=== PATIENT | male | born 1945 | race Caucasian/White ===

== ENCOUNTER 2018-02-27 22:06 | Emergency (ER) | payer OTHER, MEDICAID ==
[2018-02-27 22:15] VITALS: BP 103/71
--- NOTE | 2018-02-27 22:17 | EDPHY ---
H & P Stated Complaint: potential fasciotomy graft infection Time Seen by Provider: 02/27/18 22:17 HPI/ROS: HPI CHIEF COMPLAINT: Left leg wound, chronic. HISTORY OF PRESENT ILLNESS: 72-year-old male, homeless, polysubstance abuse including alcohol, states he has had a chronic leg wounds since October. He came in the emergency room tonight due to increasing pain. Denies fever. No significant drainage. Past Medical History: Polysubstance abuse, homelessness, alcoholism Past Surgical History: No recent surgery however chronic right lower extremity leg wound. Social History: Homeless. Family History: Noncontributory ROS REVIEW OF SYSTEMS: 10 Systems were reviewed and negative with the exception of the elements mentioned in the history of present illness. Exam Constitutional triage nursing summary reviewed, vital signs reviewed, awake/ alert. Eyes normal conjunctivae and sclera, EOMI, PERRLA. HENT normal inspection, atraumatic, moist mucus membranes, no epistaxis, neck supple/ no meningismus, no raccoon eyes. Respiratory clear to auscultation bilaterally, normal breath sounds, no respiratory distress, no wheezing. Cardiovascular rate normal, regular rhythm, no murmur, no edema, distal pulses normal. Gastrointestinal soft, non-tender, no rebound, no guarding, normal bowel sounds, no distension, no pulsatile mass. Genitourinary no CVA tenderness. Musculoskeletal no midline vertebral tenderness, full range of motion, no calf swelling, no tenderness of extremities, no meningismus, good pulses, neurovascularly intact. Skin right lateral leg 10 cm vertically oriented right lateral calf wound. By 5 cm with. No signs of infection. No pus. No drainage. No foul smell. No surrounding cellulitis. Skin appears somewhat bloody as he recently may have hit it on something. No significant tenderness on exam. Right lower extremity good distal pulse, good cap refill. Neurologic awake, alert and oriented x 3, AAOx3, moves all 4 extremities equally, motor intact, sensory intact, CN II-XII intact, normal cerebellar, normal vision, normal speech. Psychiatric normal mood/affect. Heme/Lymph/Immune no lymphadenopathy. Differential Diagnosis: Includes but is not limited to in a particular order worsening right leg wound, acute on chronic leg wound, infection, need for wound care. Medical Decision Making: Plan for this patient will copiously clean his wound. Will dress it appropriately. Obtain basic blood work. Re-evaluation: 2316: Notified by nursing staff that the patient eloped from the emergency room. The patient's right leg was appropriately dressed in clean. It is unclear why he left without notifying staff. The patient is homeless. His vital signs are stable. His blood work is unremarkable. His wound was appropriately dressed and cleaned. I was unable to discuss his medical care with him or return precautions as he eloped without notifying the ER. Will attempt to make contact with him. However he is homeless. Could be difficult. Source: Patient - Medical/Surgical History Other PMH: etoh abuse, ivda, skin popping, back surgeries - Social History Smoking Status: Current every day smoker Constitutional: Initial Vital Signs Temperature (C) 36.5 C 02/27/18 22:10 Heart Rate 90 02/27/18 22:10 Respiratory Rate 16 02/27/18 22:10 Blood Pressure 103/71 02/27/18 22:10 O2 Sat (%) 93 02/27/18 22:10 O2 Delivery Mode Room Air Allergies/Adverse Reactions: No Known Allergies Allergy (Unverified 12/22/17 17:02) Home Medications: Medication Instructions Recorded NK [No Known Home Meds] 12/22/17 Medical Decision Making - Data Points Laboratory Results: Laboratory Results 02/27/18 22:55 02/27/18 22:55 02/27/18 02/27/18 22:55 22:55 WBC 3.96 10^3/uL 10^3/uL (3.80-9.50) RBC 3.82 10^6/uL L 10^6/uL (4.40-6.38) Hgb 12.1 g/dL L g/dL (13.7-17.5) Hct 36.2 % L % (40.0-51.0) MCV 94.8 fL fL (81.5-99.8) MCH 31.7 pg pg (27.9-34.1) MCHC 33.4 g/dL g/dL (32.4-36.7) RDW 16.7 % H % (11.5-15.2) Plt Count 193 10^3/uL 10^3/uL (150-400) MPV 9.7 fL fL (8.7-11.7) Neut % (Auto) 48.2 % % (39.3-74.2) Lymph % (Auto) 34.1 % % (15.0-45.0) Harney % (Auto) 11.1 % % (4.5-13.0) Eos % (Auto) 5.6 % % (0.6-7.6) Baso % (Auto) 1.0 % % (0.3-1.7) Nucleat RBC Rel Count 0.0 % % (0.0-0.2) Absolute Neuts (auto) 1.91 10^3/uL 10^3/uL (1.70-6.50) Absolute Lymphs (auto) 1.35 10^3/uL 10^3/uL (1.00-3.00) Absolute Monos (auto) 0.44 10^3/uL 10^3/uL (0.30-0.80) Absolute Eos (auto) 0.22 10^3/uL 10^3/uL (0.03-0.40) Absolute Basos (auto) 0.04 10^3/uL 10^3/uL (0.02-0.10) Absolute Nucleated RBC 0.00 10^3/uL 10^3/uL (0-0.01) Immature Gran % 0.0 % % (0.0-1.1) Immature Gran # 0.00 10^3/uL 10^3/uL (0.00-0.10) Sodium 141 mEq/L mEq/L (135-145) Potassium 4.2 mEq/L mEq/L (3.3-5.0) Chloride 112 mEq/L H mEq/L (97-110) Carbon Dioxide 20 mEq/l L mEq/l (22-31) Anion Gap 9 mEq/L mEq/L (6-14) BUN 17 mg/dL mg/dL (7-23) Creatinine 0.7 mg/dL mg/dL (0.7-1.3) Estimated GFR > 60 Glucose 81 mg/dL mg/dL (70-100) Calcium 9.0 mg/dL mg/dL (8.5-10.4) Departure - Departure Disposition: Against Medical Advice Condition: Fair Instructions: Wound Healing and Your Diet (ED) Referrals: NONE *PRIMARY CARE P,. [Primary Care Provider] - As per Instructions
[2018-02-27 23:06] LABS: PLATELET COUNT 193 10^3/uL (150-400)
== END 2018-02-27 23:17 | disposition left against medical advice (07) ==
LOC: EDUNIT#
DX: S81.802A Unspecified open wound, left lower leg, initial encounter (principal); Z59.0 Homelessness; F10.20 Alcohol dependence, uncomplicated; F19.10 Other psychoactive substance abuse, uncomplicated

== ENCOUNTER 2018-03-25 11:41 | Emergency (ER) | payer OTHER ==
[2018-03-25] MEDS ORDERED: NS 1,800 ML IV ONE (12:11)
--- NOTE | 2018-03-25 12:14 | EDPHY ---
H & P Stated Complaint: r arm cellulitis inj meth last week Time Seen by Provider: 03/25/18 12:07 HPI/ROS: CHIEF COMPLAINT: Right arm cellulitis HISTORY OF PRESENT ILLNESS: The patient is a 72-year-old man who was sent here from [facility] for concerns cellulitis and is right forearm. He has a history of methamphetamine abuse in this homeless. He has had cellulitis and sepsis before. He presented to their clinic today asking for antibiotics. He is not febrile. The primary was concerned because of his history and recommended he come to the ER for blood work. Severity: Moderate Modifying factors: None REVIEW OF SYSTEMS: Constitutional: denies: chills, fever, recent illness, recent injury EENTM: denies: blurred vision, double vision, nose congestion Respiratory: denies: cough, shortness of breath Cardiac: denies: chest pain, irregular heart rate, lightheadedness, palpitations Gastrointestinal/Abdominal: denies: abdominal pain, diarrhea, nausea, vomiting, blood streaked stools Genitourinary: denies: dysuria, frequency, hematuria, pain Musculoskeletal: denies: joint pain, muscle pain Skin: See HPI Neurological: denies: headache, numbness, paresthesia, tingling, dizziness, weakness Hematologic/Lymphatic: denies: blood clots, easy bleeding, easy bruising Immunologic/allergic: denies: HIV/AIDS, transplant 10 systems reviewed and negative except as noted EXAM: GENERAL: Well-appearing, well-nourished and in no acute distress. HEAD: Atraumatic, normocephalic. EYES: Pupils equal round and reactive to light, extraocular movements intact, sclera anicteric, conjunctiva are normal. ENT: TMs normal, nares patent, oropharynx clear without exudates. Moist mucous membranes. NECK: Normal range of motion, supple without lymphadenopathy or JVD. LUNGS: Breath sounds clear to auscultation bilaterally and equal. No wheezes rales or rhonchi. HEART: Regular rate and rhythm without murmurs, rubs or gallops. ABDOMEN: Soft, nontender, normoactive bowel sounds. No guarding, no rebound. No masses appreciated. BACK: No CVA tenderness, no spinal tenderness, step-offs or deformities EXTREMITIES: Normal range of motion, no pitting or edema. No clubbing or cyanosis. NEUROLOGICAL: Cranial nerves II through XII grossly intact. Normal speech, normal gait. 5/5 strength, normal movement in all extremities, normal sensation , normal reflexes PSYCH: Normal mood, normal affect. SKIN: Right forearm mildly erythematous from elbow to wrist on ulnar aspect. Not circumferential. Multiple small ulcerations appear to be somewhat chronic. Source: Patient Exam Limitations: No limitations - Personal History Current Tetanus Diphtheria and Acellular Pertussis (TDAP): Yes - Medical/Surgical History Hx Asthma: No Hx Chronic Respiratory Disease: No Hx Diabetes: No Hx Cardiac Disease: No Hx Renal Disease: No Hx Cirrhosis: No Hx Alcoholism: No Hx HIV/AIDS: No Hx Splenectomy or Spleen Trauma: No Other PMH: etoh abuse, ivda, skin popping, back surgeries - Family History Significant Family History: No pertinent family hx - Social History Smoking Status: Current every day smoker Alcohol Use: Heavy Drug Use: Other Constitutional: Initial Vital Signs Temperature (C) 36.6 C 03/25/18 11:47 Heart Rate 75 03/25/18 11:47 Respiratory Rate 16 03/25/18 11:47 Blood Pressure 123/80 H 03/25/18 11:47 O2 Sat (%) 96 03/25/18 11:47 O2 Delivery Mode Room Air Allergies/Adverse Reactions: No Known Allergies Allergy (Verified 03/25/18 11:46) Home Medications: Medication Instructions Recorded Cephalexin [Keflex] 500 mg PO TID #21 cap 03/25/18 Sulfamethox/Tmp 800/160 mg 1 tab PO BID #14 tab 03/25/18 [Bactrim Ds] Medical Decision Making Procedures: I placed a peripheral IJ with an 18 gauge catheter with ultrasound guidance for vascular access and lab work. ED Course/Re-evaluation: 1:15 p.m. there is significant delay obtaining IV access because the patient's history. I was able to place a peripheral right IJ. With ultrasound guidance. The patient tolerated this well. Lab work is now been drawn. 1:50 p.m. The patient's lab work is reassuring. He is not septic appearing. He is stable vital signs. I will start him on Bactrim and Keflex. Will fill has prescriptions with the map program. Differential Diagnosis: Partial list of the Differential diagnosis considered include but were not limited to; cellulitis, wound infection and although unlikely based on the history and physical exam, I also considered abscess, sepsis. - Data Points Laboratory Results: Laboratory Results 03/25/18 13:15 03/25/18 13:15 03/25/18 03/25/18 03/25/18 13:15 13:15 13:15 WBC 10.15 10^3/uL H 10^3/uL (3.80-9.50) RBC 4.10 10^6/uL L 10^6/uL (4.40-6.38) Hgb 13.2 g/dL L g/dL (13.7-17.5) Hct 38.7 % L % (40.0-51.0) MCV 94.4 fL fL (81.5-99.8) MCH 32.2 pg pg (27.9-34.1) MCHC 34.1 g/dL g/dL (32.4-36.7) RDW 17.3 % H % (11.5-15.2) Plt Count 217 10^3/uL 10^3/uL (150-400) MPV 9.9 fL fL (8.7-11.7) Neut % (Auto) 74.3 % H % (39.3-74.2) Lymph % (Auto) 13.8 % L % (15.0-45.0) Weber % (Auto) 6.4 % % (4.5-13.0) Eos % (Auto) 4.8 % % (0.6-7.6) Baso % (Auto) 0.3 % % (0.3-1.7) Nucleat RBC Rel Count 0.0 % % (0.0-0.2) Absolute Neuts (auto) 7.54 10^3/uL H 10^3/uL (1.70-6.50) Absolute Lymphs (auto) 1.40 10^3/uL 10^3/uL (1.00-3.00) Absolute Monos (auto) 0.65 10^3/uL 10^3/uL (0.30-0.80) Absolute Eos (auto) 0.49 10^3/uL H 10^3/uL (0.03-0.40) Absolute Basos (auto) 0.03 10^3/uL 10^3/uL (0.02-0.10) Absolute Nucleated RBC 0.00 10^3/uL 10^3/uL (0-0.01) Immature Gran % 0.4 % % (0.0-1.1) Immature Gran # 0.04 10^3/uL 10^3/uL (0.00-0.10) PT 14.6 SEC SEC (12.0-15.0) INR 1.12 (0.83-1.16) APTT 27.1 SEC SEC (23.0-38.0) VBG Lactic Acid Sodium 139 mEq/L mEq/L (135-145) Potassium 3.8 mEq/L mEq/L (3.3-5.0) Chloride 107 mEq/L mEq/L (97-110) Carbon Dioxide 23 mEq/l mEq/l (22-31) Anion Gap 9 mEq/L mEq/L (6-14) BUN 13 mg/dL mg/dL (7-23) Creatinine 0.6 mg/dL L mg/dL (0.7-1.3) Estimated GFR > 60 Glucose 74 mg/dL mg/dL (70-100) Calcium 9.0 mg/dL mg/dL (8.5-10.4) Total Bilirubin 0.9 mg/dL mg/dL (0.1-1.4) 03/25/18 13:15 WBC RBC Hgb Hct MCV MCH MCHC RDW Plt Count MPV Neut % (Auto) Lymph % (Auto) Weber % (Auto) Eos % (Auto) Baso % (Auto) Nucleat RBC Rel Count Absolute Neuts (auto) Absolute Lymphs (auto) Absolute Monos (auto) Absolute Eos (auto) Absolute Basos (auto) Absolute Nucleated RBC Immature Gran % Immature Gran # PT INR APTT VBG Lactic Acid 1.9 mmol/L mmol/L (0.7-2.1) Sodium Potassium Chloride Carbon Dioxide Anion Gap BUN Creatinine Estimated GFR Glucose Calcium Total Bilirubin Medications Given: Discontinued Medications Cephalexin HCl (Keflex) 500 mg PO EDNOW ONE PRN Reason: Protocol Stop: 03/25/18 13:47 Last Admin: 03/25/18 14:02 Dose: 500 mg Sodium Chloride (Ns) 1,800 mls @ 300 mls/hr 30 ml/kg infuse over 6 hr (1800 ml ) IV EDNOW ONE PRN Reason: Protocol Stop: 03/25/18 18:10 Last Admin: 03/25/18 13:22 Dose: 1,800 mls Trimethoprim/Sulfamethoxazole (Bactrim Ds) 1 ea PO EDNOW ONE PRN Reason: Protocol Stop: 03/25/18 13:46 Last Admin: 03/25/18 14:03 Dose: 1 ea Departure - Departure Disposition: Home, Routine, Self-Care Clinical Impression: Cellulitis Condition: Fair Instructions: Cellulitis (ED) Referrals: NONE *PRIMARY CARE P,. [Primary Care Provider] - As per Instructions [facility],. [Clinic] - As per Instructions Prescriptions: Cephalexin [Keflex] 500 mg PO TID #21 cap Sulfamethox/Tmp 800/160 mg [Bactrim Ds] 1 tab PO BID #14 tab
[2018-03-25 13:30] LABS: PLATELET COUNT 217 10^3/uL (150-400)
[2018-03-25 13:38] LABS: INR 1.12 (0.83-1.16); PROTIME(PATIENT) 14.6 SEC (12.0-15.0)
[2018-03-25] MEDS ORDERED: SULFAMETHOX/TMP 800/160 MG 1 TAB PO ONE (13:45)
[2018-03-25] MEDS ORDERED: CEPHALEXIN 500 MG CAP PO ONE (13:46)
[2018-03-25 14:06] VITALS: BP 115/85
--- NOTE | 2018-03-26 16:34 | ASMTCMCOM ---
CM Note CM Note Notes: Late Entry from 03/25/18: Requested to assist pt with filling his two antibiotics. This CM had the Rxns filled through his Medicare at [facility]. Pt also provided a follow-up appt at [facility] and pt states he will make it to the appt. Pt provided a [employer] bus pass. Pt discharged and was able to ambulate well w/his walker. Spoke w/Stefania, [facility] Homeless Outreach RN and discussed pt's ED visit and assessment. Stefania had seen the patient earlier that morning and recommended he be assessed in the ED for sepsis. Plan of care discharge plan relayed to Stefania. CM available for further assistance if needed. Date Signed: 03/26/2018 04:32 PM Electronically Signed By:Sofia Wren RN
== END 2018-03-25 15:01 | disposition home or self-care (01) ==
DX: L03.113 Cellulitis of right upper limb (principal); F15.20 Other stimulant dependence, uncomplicated; F17.200 Nicotine dependence, unspecified, uncomplicated; Z59.0 Homelessness

== ENCOUNTER 2018-04-16 17:53 | Emergency (ER) | payer OTHER, MEDICAID ==
[2018-04-16] MEDS ORDERED: LORazepam 2 MG/ML INJ IVP ONE (18:13)
[2018-04-16 18:42] LABS: PLATELET COUNT 209 10^3/uL (150-400)
--- NOTE | 2018-04-16 18:50 | EDPHY ---
HPI/HX/ROS/PE/MDM Narrative: CLINICAL IMPRESSION: Intoxication, M1 hold, combative ASSESSMENT/PLAN: 72-year-old male presents to the emergency department on an M1 hold from the crisis Center where he allegedly was making suicidal statements and reporting he was going to walk out into traffic. Patient is intoxicated. Upon arrival to the ED he is combative, screaming profanities, and required 4 point restraints. Patient received Ativan and was able to sleep comfortably. He is intoxicated with an alcohol over 200. No significant lab abnormality. Patient would not tolerate IV fluids and refused p.o.. He was allowed to sleep. Urine tox is pending. Case signed out to Dr. Bailey at 0100 pending sobriety, re- evaluation, urine tox and formal psych eval. DIFFERENTIAL DX: Differential diagnosis including but not limited to hypoglycemia, infectious process, electrolyte abnormality, head injury and intoxicants, suicidal ideation ED PROCEDURES: See lab results below ED COURSE: 10:45 p.m. patient is sleeping comfortably, no longer in restraints, awaiting formal psych eval in the morning. Awaiting urine tox screen. CHIEF COMPLAINT: Intoxication, combative, M1 hold HPI: This is a 72-year-old homeless male who presents to the emergency department on an M1 hold from the crisis Center after he allegedly stated that he was feeling suicidal with a plan to walk out in front of traffic. Police were then contacted and patient became combative and angry. When I asked the patient why he is here patient states "Fuck you, I need to get out of here, I don't need to be here". Patient is intoxicated. He is not providing any additional history. Review of recent notes indicate the patient had treatment for bilateral leg wounds recently and dressings which are on currently show dressing change 2 days ago. Patient is in 4 point restraints, yelling obscenities toward staff and cursing. PMH: Alcohol is Pertinent Past Surgical History: None reported Family History: Unable to obtain Social History: Homeless, drinks alcohol REVIEW OF SYSTEMS: Unable to obtain as patient is not answering my questions, is intoxicated and combative PHYSICAL EXAM: General Appearance: Alert, oriented, smells of alcohol, vital signs stable HEENT: TMs are clear bilaterally no perforation or FB, no injection, no evidence of serous or mucopurulent otitis. Oropharynx clear is no erythema or exudates, no tonsillar hypertrophy or asymmetry. Dentition without abnormality. No scalp hematoma or signs of trauma. No hemotympanum or Lam sign Eyes: PERRLA, no acute vision change, nystagmus, swelling, discharge, pain or photosensitivity. Conjunctiva pink, no pallor or injection Neck: Supple, nontender, no lymphadenopathy, no midline pain, FROM, no meningismus. Respiratory: There are no retractions, lungs are clear to auscultation. Cardiac: Regular rate and rhythm, no murmurs or gallops. Gastrointestinal: Abdomen is soft, nontender, bowel sounds normal, no masses/ hernia, no rigidity, guarding or focal peritoneal findings. Neurological: [ Alert but not answering questions and screaming profanities Skin: Warm, dry, no rashes, no nodules on palpation. Dressings to bilateral lower legs, no erythema, warmth or obvious discharge. Patient is seen by wound care Musculoskeletal: Extremities are symmetrical, full range of motion, no tenderness, deformity, swelling, or erythema. Psychiatric: Agitated, combative, screaming profanities, intoxicated MEDICAL DECISION MAKING: Patient was seen independently. Secondary supervising physician at time of evaluation was Dr. Koch, Dr. Bailey. Diagnosis: M1 hold, intoxicated, suicidal. New, requires workup Summary: See Assessment and Plan for summary of ED visit Clinical lab tests: ordered / reviewed. Independent visualization of images, tracing, or specimens: Yes / No. Decision to obtain medical records or history from someone other than the patient: Reviewed M1 hold and crisis Center referral notes Review / Summarize previous medical records: Yes Discussed patient with another provider: Dr. Bailey, Dr. Koch Patient Progress: Stable. (Ramon Jones) MDM: 0630: Patient has been sleeping. Resting comfortably. On M1 hold. Needs mental health evaluation this morning. Patient at 7:[address] over to Dr. Koch. (Aristides Bailey) I assumed care of the patient at 0700. The patient was evaluated in the emergency department by the psychiatry service. He has a longstanding history of alcohol and methamphetamine abuse. The patient is no longer suicidal. He is not interested in any outpatient resources regarding his substance abuse. The patient likely has some component of malingering. The patient's 72 hr mental health hold was vacated as he no longer meets criteria for a mental health hold. (Canelo Koch) - Data Points Laboratory Results: Laboratory Results 04/16/18 18:35 04/16/18 18:35 04/17/18 02:14 Urine Opiates Screen NEGATIVE (NEGATIVE) Urine Barbiturates NEGATIVE (NEGATIVE) Ur Phencyclidine Scrn NEGATIVE (NEGATIVE) Ur Amphetamine Screen NON-NEGATIVE H (NEGATIVE) U Benzodiazepines Scrn NEGATIVE (NEGATIVE) Urine Cocaine Screen NEGATIVE (NEGATIVE) U Marijuana (THC) Screen NON-NEGATIVE H (NEGATIVE) Medications Given: Discontinued Medications Sodium Chloride (Ns) 1,000 mls @ 0 mls/hr IV EDNOW ONE; Wide Open PRN Reason: Protocol Stop: 04/16/18 22:35 Last Admin: 04/16/18 22:45 Dose: Not Given Lorazepam (Ativan Injection) 1 mg IVP EDNOW ONE Stop: 04/16/18 18:14 Last Admin: 04/16/18 18:42 Dose: 1 mg General Time Seen by Provider: 04/16/18 18:01 Initial Vital Signs: Initial Vital Signs Temperature (C) 36.4 C 04/16/18 18:06 Heart Rate 90 04/16/18 18:06 Respiratory Rate 18 04/16/18 18:06 Blood Pressure 106/84 H 04/16/18 18:06 O2 Sat (%) 92 04/16/18 18:06 O2 Delivery Mode Room Air O2 (L/minute) 2 Allergies/Adverse Reactions: No Known Allergies Allergy (Verified 03/25/18 11:46) Home Medications: Medication Instructions Recorded NK [No Known Home Meds] 04/16/18 Departure - Departure Disposition: Home, Routine, Self-Care Clinical Impression: Alcoholic intoxication Condition: Good Instructions: Alcohol Intoxication (ED) Additional Instructions: 1. Please follow-up with the mental health resources provided in the ED today. 2. [facility] does operate a 09/12 psychiatric crisis unit [address] [facility] [address]. The telephone number for the 24 hour crisis center is [phone]. 3. Please return to the ED if you are feeling suicidal, having thoughts of harming yourself/others or should you feel unsafe or have worsening symptoms. Referrals: [facility] [Outside] - As per Instructions
[2018-04-16] MEDS ORDERED: NS 1,000 ML IV ONE (22:34)
[2018-04-17 08:01] VITALS: BP 121/99
--- NOTE | 2018-04-17 10:07 | ASMTTCLDSP ---
TLC Discharge Disposition Disposition: Answers: Discharge If Answers: Yes DISCHARGED: Patient/family given suicide hotline info & [employer] brochure? Disposition Notes: Notes: In consultation with [facility] ED physician, Dickson Koch MD, it was concurred that pt does not appear to meet 27-65 criteria requiring psychiatric hospitalization as pt does not appear to be an imminent risk of harm to self/others/gravely disabled due to a mental illness condition. Dr. Koch vacated M1 hold. Discharge Concerns/Recommendations: Notes: Pt was offered voluntary mental health admission yet pt declined. Pt stated commitment or ability to keep self safe, denied thoughts of self harm or harm to others. Pt expressed no desire to follow up with any mental health or substance abuse treatment. Pt was given local hotline information and [facility] After an Attempt and encouraged to follow up with [facility]. Date and time M1 hold 04/17/2018 09:35 AM vacated (time format is hh:mm): Type of Hold: Answers: M1/72-hour Hold Hold initiated by: Answers: Other Notes: [facility] Date Signed: 04/17/2018 10:07 AM Electronically Signed By:Analy Schaefer
--- NOTE | 2018-04-17 10:39 | ASMTTLCEVL ---
TLC Evaluation - Basic Information Evaluation Start Date and 04/17/2018 08:45 AM Time Hospital Status Answers: M1 Hold 72-hr M1 Hold Start Date 04/16/2018 05:30 AM and Time Patient statement Notes: I dont remember. I guess I was saying I was going to hurt myself. I dont want to hurt myself. I dont know what happened things were just building up. I never wanted to hurt myself. I dont want to hurt myself now. I should be noted pt does not appear to be a reliable informant. Narrative Notes: Pt is a 72 year old homeless male who was on an M1 hold from the crisis center where he allegedly was making suicidal statements and reporting he was going to walk out into traffic. Pt was intoxicated. Upon arrival to the ED he was combative, screaming profanities, and required 4 point restraints. Pt received Ativan and was able to sleep comfortably. Pts BAL was .251 at 18:35. Pt also had a positive results of both amphetamine and marijuana. TLC evaluation was started at 08:50. Pts Breathalyzer at 08:06 was .00 Per M1 hold client with mental health diagnosis endorsing suicidal intent to leave and walk into traffic. Client has diagnosis including major depressive disorder and acute stress disorder. Client was verbally combative and refused to meet with home sales service professional. Diagnosis History Notes: Pt reported he has no formal mental health or substance abuse diagnosis. Prior suicide attempts Notes: Pt denied any prior hx of past suicide attempts. Prior hospitalizations Notes: Pt denied any prior hospitalizations for either substance abuse or mental health problems. Treatment Responses Notes: Pt denied any prior treatment hx. History of violence Notes: Pt denied any hx of violence either as a victim or harm towards others. Medications (name, dosage, route, freq uency) Notes: Pt denied any medications for psychiatric problems. Allergies/Reaction Notes: Pt denied any allergies or known allergy reactions. Sleep Notes: Pt stated he has trouble sleeping since he is homeless and sometimes just sleeps on the cement when he is unable to find retirement at the homeless retirement. Appetite Notes: Pt reported sporadic eating especially due to homelessness and lack of resources. Medical/Surgical history Notes: Pt denied any medical problems. No current medical problems were reported. Substance use history (frequency, intensity, his tory, duration) Notes: Pt reports he drinks daily and uses marijuana daily. He was vague in reporting other substance use but stated he regularly uses meth. Family composition Notes: Pt has 4 sisters and 3 brothers. His parents area . Pt stated he has no contact with his siblings. Need for family Answers: No participation in patient's care Family psychiatric/substance abuse history Notes: Pt denied any family hx of substance abuse or mental health problems. Developmental history Notes: Pt denied any developmental delays or past dx of ADD or ADHD. He said likely Laverne had a few concussions. Abuse concerns Answers: None Marital status/children Notes: Pt stated he is single, never with no children. Living situation Notes: Pt is homeless. When questioned he said he has been homeless for a long time. Sexual history/orientation Notes: Pt denies any sexual involvement. Peer support/family strengths Notes: When asked about peer support pt said he sometimes has some peer support. Pt reported no support from family. It appears his other peer support is scattered. Education level/history Notes: Pt said he attended some college at [employer]. 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 Notes: No hx reported. Legal Notes: When asked about legal problems pt said he has been incarcerated for a variety of reasons, I have a long list. Pt would not elaborate. Evangelical/Spiritual Notes: Pt denied any faith or spiritual beliefs that would interfere with his treatment. Leisure Notes: Pt stated he has no leisure interests. Collateral Notes: Collateral was obtained from ED reports. Patient's strengths Answers: Funny/Using Humor (Please select at least TWO strengths): Intelligent TLC Evaluation - Mental Status Exam Appearance: Answers: Unclean Unkempt Disheveled Eye Contact: Answers: Absent Mood: Answers: Euthymic Irritable Affect: Answers: Angry Apprehensive Guarded Indifferent Behavior: Answers: Uncooperative Resistive to Care Restless Speech: Answers: Coherent Thought Process: Answers: Oriented Intact Insight: Answers: Fair Judgement: Answers: Poor Manic Signs/Symptoms Answers: Impulsivity Depression Answers: Diminished Interest Signs/Symptoms: Diminished Pleasure Current Stage of Change Answers: Relapse Pt reported to have Answers: No suicidal/self-injuring ideation/behavior? Pt reported to be making Answers: No suicidal/self-injuring threats? Pt reported to have Answers: Yes aggression/assault ideation/behavior? Pt reported to be making Answers: No aggression/assault threats? Pt exhibits inability to Answers: No care for self/grave disability? Patient has a specific Answers: No plan? Ideation involves Answers: No serious/lethal intent? Ideation has Answers: No delusional/hallucinatory content? History of Answers: No suicidal/self-injuring ideation, behavior, or threats? History of Answers: No aggressive/assaultive ideation, behavior, or threats? TLC Evaluation - Suicide/Homicide Risk Suicide Risk Factors: Answers: Agitation Alcohol/Heavy Drug Use Global Insomnia Impulsivity Inadequate Social Support Unstable Living Situation None Current Suicidal Answers: No Ideation? Current Suicidal Ideation Answers: Yes in the Past 48 Hours? Current Suicidal Ideation Answers: No in the Past Month? Current Suicidal Answers: No Ideation, Worst Ever? Suicide Internal Answers: Absence of Psychosis Protective Factors: Other Notes: Pt denies suicidal thoughts. Suicide External Answers: Other Notes: Pt denies suicidal Protective Factors: thoughts or intent Ranking of patient's Answers: Low suicidal risk: Ranking of patient's Answers: Low homicidal risk: TLC Evaluation - Wrap-up AXIS I Diagnosis (include DSM-V and ICD-10 codes), must also be entered in [employer] [facility] work, which is the source of truth. 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
== END 2018-04-17 09:57 | disposition home or self-care (01) ==
LOC: EDUNIT#
DX: F10.920 Alcohol use, unspecified with intoxication, uncomplicated (principal); Y90.7 Blood alcohol level of 200-239 mg/100 ml; F15.20 Other stimulant dependence, uncomplicated; Z76.5 Malingerer [conscious simulation]; Z59.0 Homelessness
CPT/HCPCS: 90791; 96374; 99285; J2060; 80305; G0480

== ENCOUNTER 2018-04-28 18:37 | Emergency (ER) | payer OTHER, MEDICAID ==
--- NOTE | 2018-04-28 19:04 | EDPHY ---
H & P Stated Complaint: [facility] Hold Time Seen by Provider: 04/28/18 18:51 HPI/ROS: HPI: This is a 72-year-old male who presents with Chief Complaint: Alcohol intoxication, [facility] hold Location: Body Quality: Alcohol intoxication Duration: Unknown Signs and Symptoms: Unable to assess secondary to intoxication Timing: Acute on chronic Severity: Moderate to severe Context: Patient presents via [facility] with alcohol intoxication and [facility] hold. Detention employees called police when they found patient sleeping on the sidewalk outside of the nursing home. Patient was intoxicated and not easily arousable. He smells like alcohol. He was unable to stand on his own without moderate assistance from 2 police officers to balance. Patient is sleeping soundly in the emergency room and will only moan and open his eyes to painful stimuli of sternal rub. Modifying Factors: None Comment: ROS: Unable to assess secondary to intoxication MEDICAL/SURGICAL/SOCIAL HISTORY: Medical history: etoh abuse, skin popping Surgical history:, back surgeries Social history: Alcohol methamphetamine abuse. IV drug user. Transient. Family history noncontributory. CONSTITUTIONAL: Intoxicated, smells of alcohol, elderly white male, awake and alert, no obvious distress HEENT: Atraumatic and normocephalic, PERRL, EOMI. Nares patent; no rhinorrhea; no nasal mucosal edema. Tympanic membranes clear. Oropharynx clear, poor dentition, no exudate and moist pink mucosa. Airway patent. No lymphadenopathy. No meningismus. Cardiovascular: Normal S1/S2, regular rate, regular rhythm, without murmur rub or gallop. PULMONARY/CHEST: Symmetrical and nontender. Clear to auscultation bilaterally. Good air movement. No accessory muscle usage. ABDOMEN: Soft, nondistended, nontender, no rebound, no guarding, no peritoneal signs, no masses or organomegaly. No CVAT. EXTREMITIES: 2/2 pulses, strength 5/5, no deformities, no clubbing, no cyanosis or edema. NEUROLOGICAL: no focal neuro deficits. GCS 15. SKIN: Warm and dry, leathery skin, no erythema. no rash. Good capillary refill. Source: Police, RN/MD Exam Limitations: Intoxication - Medical/Surgical History Hx Asthma: No Hx Chronic Respiratory Disease: No Hx Diabetes: No Hx Cardiac Disease: No Hx Renal Disease: No Hx Cirrhosis: No Hx Alcoholism: No Hx HIV/AIDS: No Hx Splenectomy or Spleen Trauma: No Other PMH: etoh abuse, ivda, skin popping, back surgeries - Social History Smoking Status: Current every day smoker Constitutional: Initial Vital Signs Temperature (C) 36.9 C 04/28/18 18:43 Heart Rate 87 04/28/18 18:43 Respiratory Rate 18 04/28/18 18:43 Blood Pressure 122/83 H 04/28/18 18:43 O2 Sat (%) 90 L 04/28/18 18:43 O2 Delivery Mode Room Air Allergies/Adverse Reactions: No Known Allergies Allergy (Verified 03/25/18 11:46) Home Medications: Medication Instructions Recorded NK [No Known Home Meds] 04/16/18 Medical Decision Making ED Course/Re-evaluation: Vital signs reviewed upon arrival and O2 sats 90% on room air likely due to alcohol intoxication. Placed on compliance monitor. Agree with [facility] hold. 2030: Reassessed patient who is still sleeping soundly. 2100: Breathalyzer .144 2235: [place] police and [facility] police at bedside. Police helped patient get into a jacket. Baseline walks with cane and use the cane to ambulate to the restroom without any ataxia. Patient will be discharged to the [facility] with Librium prepack. This patient was seen under the supervision of my secondary supervising physician. I evaluated care for this patient independently. Discussed this patient with Dr. Garzon who did not see the patient. Differential Diagnosis: Altered mental status including but not limited to hypoglycemia, infectious process, electrolyte abnormality, head injury and intoxicants. - Data Points Medications Given: Discontinued Medications Chlordiazepoxide (Librium 25 Mg Prepack#6) 1 btl TAKEHOME EDNOW ONE Stop: 04/28/18 22:38 Last Admin: 04/28/18 22:40 Dose: 1 btl Departure - Departure Disposition: Home, Routine, Self-Care Clinical Impression: Alcoholic intoxication without complication Condition: Good Instructions: Chlordiazepoxide/Clidinium (By mouth), Abuse of Alcohol (ED), Alcohol Use Disorder (ED) Additional Instructions: Please go directly to the [facility]. Please avoid using alcohol excessively or illegal drugs. Referrals: [facility] Hours [Outside] - As per Instructions
[2018-04-28] MEDS ORDERED: OXYMETAZOLINE 30 ML NASAL SPRAY ONE (19:59)
[2018-04-28] MEDS ORDERED: CHLORDIAZEPOXIDE 25MG PREPK#6 BTL TAKEHOME ONE (22:37)
[2018-04-28 22:45] VITALS: BP 129/80
== END 2018-04-28 22:44 | disposition home or self-care (01) ==
LOC: EDUNIT#
DX: F10.920 Alcohol use, unspecified with intoxication, uncomplicated (principal); F15.10 Other stimulant abuse, uncomplicated; F17.200 Nicotine dependence, unspecified, uncomplicated

== ENCOUNTER 2018-04-30 19:13 | Emergency (ER) | payer OTHER, MEDICAID ==
--- NOTE | 2018-04-30 19:20 | EDPHY ---
H & P Time Seen by Provider: 04/30/18 19:14 HPI/ROS: CHIEF COMPLAINT: Intoxication HISTORY OF PRESENT ILLNESS: The patient is a 72-year-old homeless alcoholic heroin abuser who comes to the emergency department after being found sleeping outside. He has a half empty bottle whiskey with him. He told paramedics that he has not used heroin since yesterday. They had a hard time finding a vein and cannot obtain lab work. Patient is sleepy but arousable. He is not cooperative with questioning. He has several wounds to his shins and arms but that did not appear infected. No signs of trauma. Severity: Moderate Modifying factors: None REVIEW OF SYSTEMS: Unable to obtain secondary to condition EXAM: GENERAL: Thin, sleeping but easily arousable, moderately combative when aroused HEAD: Atraumatic, normocephalic. EYES: Pupils equal round and reactive to light, not small, extraocular movements intact, sclera anicteric, conjunctiva are normal. ENT: TMs normal, nares patent, oropharynx clear without exudates. Moist mucous membranes. NECK: Normal range of motion, supple without lymphadenopathy or JVD. LUNGS: Breath sounds clear to auscultation bilaterally and equal. No wheezes rales or rhonchi. HEART: Regular rate and rhythm without murmurs, rubs or gallops. ABDOMEN: Soft, nontender, normoactive bowel sounds. No guarding, no rebound. No masses appreciated. BACK: No CVA tenderness, no spinal tenderness, step-offs or deformities EXTREMITIES: Normal range of motion, no pitting or edema. No clubbing or cyanosis. NEUROLOGICAL: Cranial nerves II through XII grossly intact. 5/5 strength, normal movement in all extremities PSYCH: Uncooperative and slightly combative SKIN: See above Source: Patient, EMS Exam Limitations: Intoxication - Medical/Surgical History Hx Asthma: No Hx Chronic Respiratory Disease: No Hx Diabetes: No Hx Cardiac Disease: No Hx Renal Disease: No Hx Cirrhosis: No Hx Alcoholism: No Hx HIV/AIDS: No Hx Splenectomy or Spleen Trauma: No Other PMH: etoh abuse, ivda, skin popping, back surgeries - Family History Significant Family History: No pertinent family hx - Social History Smoking Status: Current every day smoker Alcohol Use: Heavy Drug Use: Heroin Constitutional: Initial Vital Signs Temperature (C) 36.0 C 04/30/18 19:15 Heart Rate 85 12/13/18 19:15 Respiratory Rate 19 04/30/18 19:15 Blood Pressure 99/67 L 04/30/18 19:15 O2 Sat (%) 93 04/30/18 19:15 O2 Delivery Mode Room Air Allergies/Adverse Reactions: No Known Allergies Allergy (Verified 03/25/18 11:46) Home Medications: Medication Instructions Recorded NK [No Known Home Meds] 04/16/18 Medical Decision Making ED Course/Re-evaluation: Patient appears intoxicated. No obvious signs of trauma or infection. He will not cooperate with Breathalyzer. He has a very difficult stick. We will observe him to see if he shawn appropriately. if he does not will become more aggressive with invasive testing. 7:30 p.m. the patient is ambulatory. He declines further observation or treatment. We tried to redirect him back to his room but he declines. We will allow him to leave. He is not on a hold. Differential Diagnosis: Partial list of the Differential diagnosis considered include but were not limited to; intoxication, polysubstance abuse and although unlikely based on the history and physical exam, I also considered head injury, infection. Departure - Departure Disposition: Home, Routine, Self-Care Clinical Impression: Polysubstance abuse Alcohol intoxication Qualifiers: Complication of substance-induced condition: with unspecified complication Qualified Code(s): F10.929 - Alcohol use, unspecified with intoxication, unspecified Condition: Fair Instructions: Alcohol Intoxication (ED) Referrals: NONE *PRIMARY CARE P,. [Primary Care Provider] - As per Instructions [facility],. [Clinic] - As per Instructions
[2018-04-30 19:31] VITALS: BP 105/67
== END 2018-04-30 19:31 | disposition home or self-care (01) ==
LOC: EDUNIT#
DX: F10.129 Alcohol abuse with intoxication, unspecified (principal); F17.200 Nicotine dependence, unspecified, uncomplicated; F11.10 Opioid abuse, uncomplicated; Z59.0 Homelessness